=== PATIENT | female | born 1960 | race Caucasian/White ===

== ENCOUNTER → 2018-06-21 10:27 | Outpatient (POV) | payer OTHER, SELFPAY | PROVIDERS: Visit Provider Nurse Practitioner Acute Care | DX: Z00.00 Encounter for general adult medical examination without abnormal findings (principal) ==

== ENCOUNTER 2020-09-21 19:54 | Emergency (ER) | payer BC, SELFPAY ==
[2020-09-21] VITALS (8 sets, daily range): BP systolic 119–167; BP diastolic 73–90; PULSE 71–95; RESP 14–20; TEMP 36.6–36.7; O2SAT 90–99; BMI 24.4
--- NOTE | 2020-09-21 20:10 | [facility].EDGENADL ---
ED Disposition Clinical Impression: Traumatic hematoma Shoulder contusion Qualifiers: Encounter type: initial encounter Laterality: right Qualified Code(s): S40.011A - Contusion of right shoulder, initial encounter Contusion, wrist Qualifiers: Encounter type: initial encounter Laterality: right Qualified Code(s): S60.211A - Contusion of right wrist, initial encounter Hip hematoma, right Qualifiers: Encounter type: initial encounter Qualified Code(s): S70.01XA - Contusion of right hip, initial encounter Disposition: Home, Self-Care Condition on Discharge: Good Additional Instructions: Use ice on the right hip, right rib cage, and right shoulder to help with swelling. Use Tylenol as well for pain. Rest over the next several days. Please report back to our emergency department if any new or worsening symptoms. Otherwise follow-up with primary care doctor for recheck to ensure resolve symptoms within several days. Referrals: Yolis Mcmullen MD [Primary Care Provider] - - Critical Care Critical Care Time: No Attestation: On , the high probability of a clinically significant, sudden or life threatening deterioration of the following system(s) required my full and direct attention, intervention and personal management. The time I documented below is in addition to time spent performing reported procedures but includes the following listed in this critical care notation. Medical Decision Making - Medical Records Medical records reviewed: Yes: I reviewed the patient's medical records. - Pablo Inquiry Pt receiving controlled substance: Yes Pablo was queried for this patient: No Risks and benefits of using a controlled substance: were discussed with pt by me Vital Signs: 09/21/20 20:05 09/21/20 20:30 Temperature 98.1 F Temperature Source Oral Pulse Rate [Left Brachial] 76 74 Respiratory Rate 20 20 Blood Pressure [Right Arm] 133/90 133/90 Blood Pressure Mean [Right Arm] 104 104 Blood Pressure Source [Right Arm] Manual Cuff/ Auscultation Blood Pressure Position [Right Arm] Supine 02 Sat by Pulse Oximetry 99 99 Oxygen Delivery Method Room Air - Lab Data Lab Results 09/21/20 20:15: WBC 8.8, RBC 4.07 L, Hgb 11.7 L, Hct 35.4 L, MCV 87.0, MCH 28.7, MCHC 33.0, RDW 14.2, Plt Count 206, MPV 7.7, Neut % (Auto) 76.7, Lymph % (Auto) 16.5, Caroline % (Auto) 6.2, Eos % (Auto) 0.3, Baso % (Auto) 0.2, Neut # (Auto) 6.8, Lymph # (Auto) 1.5, Caroline # (Auto) 0.6, Eos # (Auto) 0.0, Baso # (Auto) 0.0 09/21/20 20:15: PT 10.3, INR 0.86 L, APTT 22.6 L 09/21/20 20:15: Sodium 138, Potassium 4.2, Chloride 102, Carbon Dioxide 30, Anion Gap 10.2, BUN 16, Creatinine 1.00, Estimated GFR 56 L, Est GFR ( Amer) 68, Glucose 111 H, Calcium 9.8, Troponin I < 0.01 Result diagrams: 09/21/20 20:15 09/21/20 20:15 Orders (Tests/Meds): ED MEDICATIONS Discontinued Medications Generic Name Dose Route Start Last Admin Trade Name Eriberto PRN Reason Stop Dose Admin Morphine Sulfate 2 mg 09/21/20 20:24 09/21/20 21:02 Morphine 4mg/Ml Syringe IV 09/21/20 20:25 2 mg ONCE ONE Administration Ondansetron HCl 4 mg 09/21/20 20:24 09/21/20 21:02 Ondansetron 4mg/2ml Vial IV 09/21/20 20:25 4 mg ONCE ONE Administration ORDERS Category Date Time Status CT abdomen pelvis w con Stat Cat Scan 09/21/20 20:[address] cervical spine wo con Stat Cat Scan 09/21/20 20:[address] chest w con Stat Cat Scan 09/21/20 20:[address] head/brain wo con Stat Cat Scan 09/21/20 20:41 Taken XR chest portable Stat Exams 09/21/20 20:24 Taken XR elbow RT min 3V Stat Exams 09/21/20 20:24 Taken XR pelvis 1-2V Stat Exams 09/21/20 21:33 Taken XR shoulder RT min 2V Stat Exams 09/21/20 20:24 Taken XR wrist RT min 3V Stat Exams 09/21/20 20:24 Taken Troponin I Q3H Lab 09/21/20 23:30 Ordered Troponin I Q3H Lab 09/22/20 02:30 Ordered Medical Decision Narrative: She presents the emergency department after being t
--- NOTE | 2020-09-21 20:24 | XR_ITS ---
PROCEDURE: XR CHEST PORTABLE CLINICAL HISTORY: kicked in chest by horse with pain Pain COMPARISON: No exams were available for comparison FINDINGS: The cardiomediastinal silhouette and pulmonary vascularity are within normal limits. The lungs are clear without infiltrates, suspicious nodules, or pleural effusions. There is an old left clavicular fracture. There are old fractures of the right 7th and 8th ribs. IMPRESSION: No acute findings. Dictated by: Isaiah Alvarado MD 09/22/2020 07:17 Isaiah Alvarado MD in [facility] 09/22/2020 07:17
--- NOTE | 2020-09-21 20:24 | XR_ITS ---
PROCEDURE: XR WRIST RT MIN 3V CLINICAL INDICATION: fell off horse with R shoulder/wrist, hip pain COMPARISON: No exams were available for comparison FINDINGS: There are old fractures of the distal radius and ulna. No acute fracture apparent. Lucency noted involving the articular surface of the distal radius suggesting an old fracture. Other findings:None. IMPRESSION: Old distal radial and ulnar fracture. No acute finding Dictated by: Isaiah Alvarado MD 09/22/2020 07:37 Isaiah Alvarado MD in [facility] 09/22/2020 07:37
--- NOTE | 2020-09-21 20:24 | CT_ITS ---
PROCEDURE: CT ABDOMEN PELVIS W CON CLINICAL INDICATION: fell of horse with headache Blunt trauma with injury and pain, contusion/abrasion or hematoma following injury COMPARISON: No exams were available for comparison TECHNIQUE: IV Contrast: 75ML Isovue 370 Oral Contrast None Axial images obtained with sagittal and coronal reformats. All CT scans at the facility use one or more dose reduction, viz: automated exposure control, ma/kV adjustment per patient size (including targeted exams where dose is matched to indication, i.e. head), or iterative reconstruction technique. FINDINGS: LOWER THORAX: No acute finding ABDOMEN & PELVIS: The liver, spleen, adrenal glands, pancreas, and kidneys have an unremarkable appearance. There is a mild amount of retained colonic feces. Nonspecific nondistended fluid-filled loops of small bowel are present. No intestinal obstruction or free air. No pelvic mass or abnormal fluid collection. The appendix is not clearly delineated. No secondary signs of appendicitis. No evidence of diverticulitis. Levoscoliosis of the thoracolumbar spine. No acute fracture apparent. There is stranding of the subcutaneous soft tissues in the right gluteal region consistent with a contusion with a 2 x 1 cm suspected hematoma at the iliac crest area posteriorly. 5 mm left lateral subluxation of L4 on L5 IMPRESSION: 1. Soft tissue swelling/contusion in the right gluteal region with small hematoma at 2 x 1 cm. 2. No acute intra-abdominal or pelvic findings. 3. Scoliosis Dictated by: Isaiah Alvarado MD 09/22/2020 09:18 Isaiah Alvarado MD in [facility] 09/22/2020 09:18
--- NOTE | 2020-09-21 20:24 | XR_ITS ---
PROCEDURE: XR SHOULDER RT MIN 2V CLINICAL INDICATION: fell off horse with R shoulder/wrist, hip pain Injury with pain COMPARISON: CT CT CHEST W CON from 09/21/2020 FINDINGS: The glenohumeral joint and acromioclavicular joint have an unremarkable appearance. No obvious fracture. There is an old fracture of the right 7th and 8th ribs IMPRESSION: No acute findings. Dictated by: Isaiah Alvarado MD 09/22/2020 07:09 Isaiah Alvarado MD in [facility] 09/22/2020 07:09
--- NOTE | 2020-09-21 20:24 | CT_ITS ---
PROCEDURE: CT CERVICAL SPINE WO CON CLINICAL INDICATION: fell of horse with headache Neck injury with pain, contusion/abrasion or hematoma, cervical sprain/strain the COMPARISON: No exams were available for comparison TECHNIQUE: Axial images obtained with sagittal and coronal reformats. All CT scans at the facility use one or more dose reduction, viz: automated exposure control, ma/kV adjustment per patient size (including targeted exams where dose is matched to indication, i.e. head), or iterative reconstruction technique. Axial spiral CT scanning performed of the cervical spine beginning at the base of the skull and continuing to the upper T-spine. 3-D multiplanar reconstruction with 3-D manipulation of volumetric data set in image rendering was completed by the radiologist and/or technologist with the supervision of the radiologist on independent workstation. FINDINGS: Normal alignment. Straightening of cervical lordosis. No acute fracture or dislocation. C2-C3: Unremarkable. C3-C4: Unremarkable. C4-C5: degenerative disc disease. C5-C6: Degenerative disc disease. Mild right foraminal narrowing from uncovertebral hypertrophy C6-C7: Degenerative disc disease C7-T1: 2 mm anterolisthesis of C7 Calcified nodule left upper lobe with subpleural nodule left upper lobe measuring 4 mm. IMPRESSION: No acute fracture. Mild multilevel cervical spondylosis with straightening of cervical lordosis Dictated by: Isaiah Alvarado MD 09/22/2020 09:00 Isaiah Alvarado MD in [facility] 09/22/2020 09:00
--- NOTE | 2020-09-21 20:24 | XR_ITS ---
PROCEDURE: XR ELBOW RT MIN 3V CLINICAL INDICATION: fell off horse with R shoulder/wrist, hip pain Injury with pain COMPARISON: No exams were available for comparison FINDINGS: No fracture or dislocation. No lytic or blastic change. There is normal mineralization. The joint spaces are well-preserved. No significant degenerative/arthritic changes. No erosive changes evident. Other findings:None. IMPRESSION: No acute findings. Dictated by: Isaiah Alvarado MD 09/22/2020 07:09 Isaiah Alvarado MD in [facility] 09/22/2020 07:09
--- NOTE | 2020-09-21 20:24 | CT_ITS ---
PROCEDURE: CT CHEST W CON CLINCAL INDICATION: fell of horse with headache Blunt trauma with injury and pain, contusion/abrasion or hematoma following injury COMPARISON: No exams were available for comparison TECHNIQUE: IV Contrast: 75ml Isovue 370 Axial images obtained with sagittal and coronal reformats. All CT scans at the facility use one or more dose reduction, viz: automated exposure control, ma/kV adjustment per patient size (including targeted exams where dose is matched to indication, i.e. head), or iterative reconstruction technique. FINDINGS: HEART AND MEDIASTINAL STRUCTURES: Unremarkable. LUNGS AND PLEURAL SPACES: Calcified granuloma left apex. 5 mm left apical nodule possibly due to scarring. Minimal atelectatic or fibrotic change left lung base posteriorly. BONY STRUCTURES: Levoscoliosis of the thoracolumbar spine UPPER ABDOMEN: Unremarkable. ADDITIONAL FINDINGS: No other significant abnormalities. IMPRESSION: No acute finding Dictated by: Isaiah Alvarado MD 09/22/2020 09:12 Isaiah Alvarado MD in [facility] 09/22/2020 09:12
[2020-09-21 20:35] LABS: Basophils % 0.2 % (0.1-2.0); Eosinophils % 0.3 % (0.1-12.0); Hematocrit 35.4 % (37.0-47.0); Hemoglobin 11.7 g/dL (12.2-16.2); Lymphocytes # 1.5 K/mm3 (0.7-4.5); Lymphocytes % 16.5 % (10-50); Mean Corpuscular Hemoglobin 28.7 pg (27.0-31.2); Mean Platelet Volume 7.7 fl (7.4-10.4); Monocytes # 0.6 K/mm3 (0.1-1.0); Monocytes % 6.2 % (1.7-9.3); Neutrophils # 6.8 K/mm3 (1.8-7.8); Neutrophils % 76.7 % (37.0-80.0); Platelet Count 206 K/mm3 (142-424); Red Blood Count 4.07 M/mm3 (4.20-5.40); Red Cell Distribution Width 14.2 % (11.5-17.5); White Blood Count 8.8 K/mm3 (4.8-10.8)
--- NOTE | 2020-09-21 20:41 | CT_ITS ---
PROCEDURE: CT HEAD/BRAIN WO CON CLINICAL INDICATION: fell off horse with head pain Head injury with headache/pain, contusion, abrasion or hematoma COMPARISON: No exams were available for comparison TECHNIQUE: Axial images obtained. All CT scans at the facility use one or more dose reduction, viz: automated exposure control, ma/kV adjustment per patient size (including targeted exams where dose is matched to indication, i.e. head), or iterative reconstruction technique. FINDINGS: No midline shift, mass effect, intracranial hemorrhage, hydrocephalus, or extra-axial fluid collection is evident. Mild degree of atrophy. The calvarium has an unremarkable appearance. Fluid density noted in the left mastoid sinus with some osteosclerosis consistent with chronic mastoiditis. No sinus air-fluid level. IMPRESSION: No acute intracranial finding Left mastoid sinus disease Dictated by: Isaiah Alvarado MD 09/22/2020 08:56 Isaiah Alvarado MD in [facility] 09/22/2020 08:56
[2020-09-21 20:42] LABS: Chloride 102 mmol/L (98-107); Potassium 4.2 mmoL/L (3.5-5.1); Sodium 138 mmol/L (136-145)
[2020-09-21 20:45] LABS: Anion Gap 10.2 mEq/L (5-15); Blood Urea Nitrogen 16 mg/dl (7-17); Calcium 9.8 mg/dl (8.4-10.2); Carbon Dioxide 30 mmol/L (22.0-30.0); Estimated Glomerular Filt Rate 56 ml/min (>60); GFR (African American) 68 ML/MIN (>60); Glucose 111 mg/dl (74-100)
[2020-09-21 20:57] LABS: Troponin I < 0.01 ng/ml (0.00-0.034)
[2020-09-21 21:00] LABS: Activated Partial Thrombo Time 22.6 seconds (22.8-30.6); INR 0.86 (0.9-1.1); Prothrombin Time 10.3 seconds (10.1-12.5)
--- NOTE | 2020-09-21 21:16 | PC.NURSE ---
called trauma alert at 2003 and cancelled alert at [address] tolbert.
--- NOTE | 2020-09-21 21:33 | XR_ITS ---
PROCEDURE: XR PELVIS 1-2V CLINICAL INDICATION: trauma Posttraumatic pain COMPARISON: No exams were available for comparison TECHNIQUE: XR Pelvis AP View FINDINGS: No fracture or dislocation is evident. No significant degenerative change. Lumbar scoliosis convex IMPRESSION: No acute findings. Dictated by: Isaiah Alvarado MD 09/22/2020 07:16 Isaiah Alvarado MD in [facility] 09/22/2020 07:16
== END 2020-09-21 23:29 | disposition home or self-care (01) ==
PROVIDERS: Emergency Provider Emergency Medicine; PCP Family Medicine
DX: S40.011A Contusion of right shoulder, initial encounter (principal); S60.211A Contusion of right wrist, initial encounter; S70.01XA Contusion of right hip, initial encounter; F41.9 Anxiety disorder, unspecified; E78.5 Hyperlipidemia, unspecified; V80.010A Animal-rider injured by fall from or being thrown from horse in noncollision accident, initial encounter; Y93.52 Activity, horseback riding; Y92.73 Farm field as the place of occurrence of the external cause
CPT/HCPCS: 70450; 71045; 71260; 72125; 72170; 73030; 73080; 73110; 74177; 80048; 84484; 85025; 85610; 85730; 96374; 96375; 99291; J2405